=== PATIENT | female | born 1955 | race Asian ===

== ENCOUNTER 2018-12-07 17:37 | Emergency (ER) | payer MEDICARE, MEDICAID ==
--- NOTE | 2018-12-07 18:40 | ED Physician Chart ---
ED Chief Complaint/HPI - Patient Information Date Seen:: 12/07/18 Time Seen:: 18:30 Chief Complaint:: forehead laceration History of Present Illness:: Unwitnessed fall in the patient's room. The commercial fisherman accompanying the patient said the patient did not have the wide band of erythema as described below before today's fall. Allergies:: Allergies Allergy/AdvReac Type Severity Reaction Status Date / Time amoxicillin [From Augmentin] Allergy Verified 12/07/18 18:22 clavulanic acid Allergy Verified 12/07/18 18:22 [From Augmentin] erythromycin base Allergy Verified 12/07/18 18:24 Penicillins [PCN] Allergy Verified 12/07/18 18:20 potassium Allergy Verified 12/07/18 18:25 tetracycline Allergy Verified 12/07/18 18:24 sulfonamide Allergy Uncoded 12/07/18 18:24 trihydrate Allergy Uncoded 12/07/18 18:25 Historian:: Other Review:: Transfer documents Reviewed ED Review of Systems - Review of Systems General/Constitutional: No fever, No chills, No weight loss, No weakness, No diaphoresis, No edema, No loss of appetite Skin: No rash, No bruising, Other (addendum erythema Avenue about 12 cm wide extending from near the spine around the left side to midline abdomen) Head: No headache, No light-headedness Eyes: No loss of vision, No pain, No diplopia ENT: No earache, No nasal drainage, No sore throat, No tinnitus Neck: No neck pain, No swelling, No thyromegaly, No stiffness, No mass noted Cardio Vascular: No chest pain, No palpitations, No PND, No orthopnea, No edema Pulmonary: No SOB, No cough, No sputum, No wheezing GI: No nausea, No vomiting, No diarrhea, No pain, No melena, No hematochezia, No constipation, No hematemesis G/U: No dysuria, No frequency, No hematuria Musculoskeletal: No bone or joint pain, No back pain, No muscle pain Endocrine: No polyuria, No polydipsia Psychiatric: No prior psych history, No depression, No anxiety, No suicidal ideation Hematopoietic: No bruising, No lymphadenopathy Allergic/Immuno: No urticaria, No angioedema Neurological: No syncope, No focal symptoms, No weakness, No paresthesia, No headache, No seizure, No dizziness, No confusion, No vertigo Family Medical History - Family Member Mother History Unknown: Yes ED Physical Exam - Physical Examination General/Constitutional: Awake, Well-developed, well-nourished, Alert, No distress, GCS 15, Non-toxic appearing, Ambulatory Head: Atraumatic Eyes: Lids, conjuctiva normal, PERRL, EOMI Skin: No lymphadenopathy Other Skin comments:: 2 lacerations each about 2 cm long left side of forehead at hairline ENMT: External ears, nose nl, Nasal exam nl Neck: Nontender, Full ROM w/o pain, No JVD, No nuchal rigidity, No bruit, No mass, No stridor Respiratory: Nl effort/Exclusion, Clear to Auscultation, No Wheeze/Rhonchi/Rales Cardio Vascular: RRR, No murmur, gallop, rubs, NL S1 S2 GI: No tenderness/rebounding/guarding, No organomegaly, No hernia, Normal BS's, Nondistended, No mass/bruits, No McBurney tenderness : No CVA tenderness Extremities: No tenderness or effusion, Full ROM, normal strength in all extremities, No edema, Normal digits & nails Neuro/Psych: Alert/oriented, DTR's symmetric, Normal sensory exam, Normal motor strength, Judgement/insight normal, Mood normal, Normal gait, No focal deficits Misc: Normal back, No paraspinal tenderness ED Labs/Radiology/EKG Results - Radiology Results Results: Chest x-ray negative ED Assessment - Assessment General Assessment: Absorbable sutures were used to close the scalp laceration. The wide band of erythema on the left side of the patient's torso may represent herpes zoster although no vesicles are present. When asked she patient agreed with the area was painful. - Procedures Procedures:: Skin cleansed with Betadine solution; 2% Xylocaine with epinephrine for local anesthesia; irrigated with normal saline; each laceration closed with 5-0 chromic 3 interrupted sutures; Dermabond then applied to both sutured lacerations ED Septic Shock - . Is Septic Shock (SBP<90, OR Lactate>4 mmol\L) present?: No ED Reassessment (Disposition) - Reassessment Reassessment Condition:: Improved - Diagnosis Diagnosis:: two forehead lacerations total length 4 cm; herpes zoster - Aftercare/Follow up Instructions Aftercare/Follow-Up Instructions:: Refer to Discharge Instructions - Patient Disposition Discharge/Transfer:: Residential/Boarding Care Condition at Disposition:: Stable, Improved
--- NOTE | 2018-12-08 08:52 | Diagnostic Imaging Report ---
Portable chest x-ray HISTORY: Pain, trauma There is a poor inspiration. The heart size appears somewhat generous. Atherosclerotic calcification seen in the aorta. Allowing for the poor inspiration, no acute focal pulmonary processes are seen. IMPRESSION: 1. Allowing for a poor inspiration, no acute focal pulmonary processes 2. Suggestion of a generous heart size with atherosclerotic vascular changes
== END 2018-12-07 20:15 | disposition home or self-care (01) ==
LOC: ER 17:37
DX: S01.81XA Laceration without foreign body of other part of head, initial encounter (principal); Z88.0 Allergy status to penicillin; Z88.1 Allergy status to other antibiotic agents; Z88.2 Allergy status to sulfonamides; W18.39XA Other fall on same level, initial encounter; Y93.89 Activity, other specified; Y92.89 Other specified places as the place of occurrence of the external cause; Y99.8 Other external cause status
CPT/HCPCS: 71045-TC; A4217; X6444; Z7502; Z7610